=== PATIENT | male | born 1990 | race Caucasian/White ===

== ENCOUNTER 2017-07-07 17:08 | Emergency (ER) | payer SELFPAY ==
[2017-07-07 17:10] VITALS: BP 129/80; PULSE 99; RESP 16; TEMP 98.5; O2SAT 99
== END 2017-07-07 20:20 | disposition left against medical advice (07) ==
LOC: NED 17:08
DX: Z53.21 Procedure and treatment not carried out due to patient leaving prior to being seen by health care provider (principal)
CPT/HCPCS: 99281

== ENCOUNTER 2017-08-26 20:44 | Emergency (ER) | payer SELFPAY ==
[~2017-08-26] VITALS: Ht 182.9 cm; Wt 77.0 kg
[2017-08-26 20:46] VITALS: BP 147/83; PULSE 91; RESP 16; TEMP 98.7; O2SAT 99
--- NOTE | 2017-08-26 21:27 | PD ---
HPI Chief Complaint: Cold / Flu Symptoms Time Seen by Provider: 21:18 Travel History International Travel<30 days: No Contact w/Intl Traveler<30days: No Traveled to known affect area: No History of Present Illness HPI 27-year-old male smoker presents for evaluation of cough. He reports over the past 4 months he has had an intermittent productive cough, worse over the past several days. He was seen at an urgent care center and recently completed a Z- [place]orio. The cough has persisted which prompted evaluation. He has not tried using any [id number] cough suppressants. Denies fevers or chills. Denies abdominal pain, vomiting. No recent travel. No other complaints. PFSH Past Medical History Hepatitis: Yes (C) Immunizations Current: Yes Social History Alcohol Use: No Tobacco Use: Yes Substance Use: No Allergies-Medications (Allergen,Severity, Reaction): Coded Allergies: No Known Allergies (Unverified , 08/26/17) Reported Meds & Prescriptions Reported Meds & Active Scripts Active Tessalon Perles (Benzonatate) 100 Mg Cap 200 Mg PO TID PRN Review of Systems Except as stated in HPI: all other systems reviewed are Neg Physical Exam Narrative GENERAL: Well-developed well-nourished male in no acute distress SKIN: Warm and dry. HEAD: Atraumatic. Normocephalic. EYES: Pupils equal and round. No scleral icterus. No injection or drainage. ENT: No nasal bleeding or discharge. Mucous membranes pink and moist. NECK: Trachea midline. No JVD. CARDIOVASCULAR: Regular rate and rhythm. No murmur appreciated. RESPIRATORY: No accessory muscle use. Clear to auscultation. Breath sounds equal bilaterally. No crackles no wheezing or rhonchi GASTROINTESTINAL: Abdomen soft, non-tender, nondistended. Hepatic and splenic margins not palpable. MUSCULOSKELETAL: No obvious deformities. No clubbing. No cyanosis. No edema. NEUROLOGICAL: Awake and alert. No obvious cranial nerve deficits. Motor grossly within normal limits. Normal speech. PSYCHIATRIC: Appropriate mood and affect; insight and judgment normal. Data Data Last Documented VS Vital Signs Date Time Temp Pulse Resp B/P (MAP) Pulse Ox O2 Delivery O2 Flow Rate FiO2 08/26/17 20:46 98.7 91 16 147/83 (104) 99 Room Air Orders Orders Chest, Single Ap (12/12/17 ) Ed Discharge Order (08/26/17 22:11) [facility] Medical Decision Making Medical Screen Exam Complete: Yes Emergency Medical Condition: Yes Medical Record Reviewed: Yes Differential Diagnosis Cough secondary to tobacco use, bronchitis, bronchiectasis, pneumonia, pertussis Narrative Course 27-year-old male smoker presents with a cough for 4 months. Chest x-ray performed today is unremarkable. I suspect a chronic cough secondary to smoking with current acute bronchitis, likely viral. Recommended cessation of tobacco use and if the chronic cough persists to follow up with a wrapper selector. He will be discharged with Tessalon. Diagnosis Primary Impression: Chronic cough Additional Instructions: Avoid tobacco products. Tessalon for cough. Follow up with primary care physician or wrapper selector if symptoms persist. Return for any emergent medical conditions. Med/Other Pt SpecificInfo: Prescription(s) given Scripts Benzonatate (Tessalon Perles) 100 Mg Cap 200 MG PO TID Y for COUGH, #30 CAP 0 Refills Prov: Cirilo Olivas MD 08/26/17 Disposition: 01 DISCHARGE HOME Condition: Stable Galileo Bui Aug 26, 2017 21:27
--- NOTE | 2017-08-26 22:06 | RADRPT ---
EXAM DATE/TIME: 08/26/2017 21:28 [place] COMPARISON: No previous studies available for comparison. INDICATIONS : Cough. MEDICAL HISTORY : None. SURGICAL HISTORY : None. ENCOUNTER: Initial ACUITY: 2 months PAIN SCORE: 0/10 LOCATION: Bilateral chest FINDINGS: A single view of the chest demonstrates the lungs to be symmetrically aerated without evidence of mas s, infiltrate or effusion. The cardiomediastinal contours are unremarkable. Osseous structures are intact. CONCLUSION: No acute disease. Pablito Barlow MD on August 26, 2017 at 22:04 Board Certified Radiologist. This report was verified electronically.
[2017-08-26] MEDS ORDERED: BENZ100 PO (22:11)
== END 2017-08-26 22:27 | disposition home or self-care (01) ==
LOC: NEPD 20:44
DX: R05 Cough (principal); Z72.0 Tobacco use; Z86.19 Personal history of other infectious and parasitic diseases
CPT/HCPCS: 71010; 99283